=== PATIENT | female | born 1965 | race Native Hawaiian/Other Pacific Islander ===

== ENCOUNTER → 2018-04-01 | Outpatient (CLI) | payer OTHER ==
--- NOTE | 2018-04-01 12:10 | NM ---
EXAMINATION TYPE: NM stress cardiolite complete DATE OF EXAM: 04/01/2018 COMPARISON: NONE HISTORY: abnormal CV function study TECHNIQUE: After the intravenous administration of 10.82 mCi Tc 99m Sestamibi - Rest images obtained 40 minutes post injection. The patient exercised using a ROMIE protocol and 1 minute prior to peak exercise was injected with 25.4 mCi Tc 99m Sestamibi - Stress images obtained 5 minutes post injecti on. FINDINGS: Targeted heart rate was achieved during performance of the study. Review of stress and rest SPECT jose eduardo ges demonstrates no distinct perfusion abnormality. Gated analysis shows normal wall motion with an estimated left ventricular ejection fraction of 50 %. IMPRESSION: No scintigraphic evidence for reversible ischemia
--- NOTE | 2018-04-01 12:14 | EST ---
EXERCISE STRESS AGE: 52 SEX: F HT: 5'2" WT: 196 PROTOCOL: [address] Stress Test STAGE: II DURATION OF EXERCISE: 5:00 HEART RATE REST: 82 BLOOD PRESSURE REST: 146/79 MAXIMUM HEART RATE ACHIEVED: 155 MAXIMUM BLOOD PRESSURE: 169/66 85% MPHR: 141 100% MPHR: 166 METS: 8.9 INDICATIONS: High calcium score. CLINICAL INFORMATION: Patient was exercised for a total period of 5 minutes, peak heart rate of 155 was achieved. Maximum blood pressure 169/66 mmHg was noted. Patient did not complain of any chest pain during the test. Resting EKG shows normal sinus rhythm with normal AK interval and QRS duration and nonspecific ST-T changes. No ST-segment depression suggestive of ischemia was noted. Patient did not complain of any chest pain during the test. FINAL IMPRESSION: 1. This exercise test is not suggestive of ischemia. 2. Patient's exercise tolerance is limited. 3. No dysrhythmias are noted. MMODL / IJN: [id number] /
--- NOTE | 2018-04-01 12:21 | US ---
EXAMINATION TYPE: US abdomen limited DATE OF EXAM: 04/01/2018 COMPARISON: NONE CLINICAL HISTORY: 52-year-old female K78.0 fatty liver. TECHNIQUE: Multiple sonographic images of the right upper quadrant are obtained. FINDINGS: EXAM MEASUREMENTS: Liver Length: 17.6 cm Gallbladder: Surgically absent CBD: 0.7 cm Right Kidney: 10.7 x 5.0 x 4.6 cm Pancreas: Obscured by bowel gas Liver: Obscured by overlying bowel gas, difficult to penetrate either due to fatty infiltration or p atient technical characteristics and soft tissue attenuation. Gallbladder: Surgically absent Evidence for sonographic Bahena's sign: No CBD: Mildly dilated but within normal limits given postcholecystectomy status. Right Kidney: No hydronephrosis. IMPRESSION: Attenuating liver either due to technical factors or underlying hepatic steatosis. Body habitus and b owel gas limits the ultrasound evaluation. Bile duct mildly (7 mm) dilated but within normal limits given postcholecystectomy status.
== END | disposition home or self-care (01) ==
LOC: RADUSMAIN 07:53
PROVIDERS: ATTEND Family Medicine
DX: K76.89 Other specified diseases of liver (principal); K83.8 Other specified diseases of biliary tract; R94.39 Abnormal result of other cardiovascular function study; E11.9 Type 2 diabetes mellitus without complications; Z90.49 Acquired absence of other specified parts of digestive tract
CPT/HCPCS: 93017; 76705; 78452; A9500

== ENCOUNTER 2019-01-01 19:05 | Emergency (ER) | payer OTHER ==
[2019-01-01 19:34] VITALS: RESP 18
[2019-01-01] MEDS ORDERED: SODIUM CHLORIDE 0.9% 1,000 ML IV STA (21:54)
--- NOTE | 2019-01-01 22:01 | ED ---
Abdominal Pain HPI - General Chief Complaint: Abdominal Pain Stated Complaint: Abd Pain Time Seen by Provider: 01/01/19 21:46 Source: patient Mode of arrival: ambulatory Limitations: no limitations - History of Present Illness Initial Comments: Patient is a 53-year-old female complaining of abdominal pain 5 days. Patient states she's also had episodes of nausea and vomiting on and off throughout the 5 days. Patient admits to history of pancreatitis in 2002 and this feels similar. Patient states the pain is in the left upper quadrant with radiation to the left back and currently is a 4/10 pain. Patient admits to history of cholecystectomy. Patient admits to a couple episodes of diarrhea in the past couple days. Denies any recent travel or antibiotic use. Patient denies alcohol abuse, smoking. Patient denies chest pain, shortness of breath, urinary symptoms. - Related Data Previous Rx's Medication Instructions Recorded Cephalexin [Keflex] 500 mg PO Q12HR 10 Days #20 cap 01/01/19 Allergies Allergy/AdvReac Type Severity Reaction Status Date / Time No Known Allergies Allergy Verified 01/01/19 19:34 Review of Systems ROS Statement: Those systems with pertinent positive or pertinent negative responses have been documented in the HPI. ROS Other: All systems not noted in ROS Statement are negative. Past Medical History Past Medical History: Diabetes Mellitus Additional Past Medical History / Comment(s): pancreatitis History of Any Multi-Drug Resistant Organisms: None Reported Past Surgical History: Cholecystectomy, Joint Replacement, Orthopedic Surgery Past Psychological History: No Psychological Hx Reported Smoking Status: Never smoker Past Alcohol Use History: None Reported Past Drug Use History: None Reported General Exam - General Exam Comments Initial Comments: GENERAL: Well-appearing, well-nourished and in no acute distress. HEAD: Atraumatic, normocephalic. EYES: Pupils equal round and reactive to light, extraocular movements intact, sclera anicteric, conjunctiva are normal. ENT: TMs normal, nares patent, oropharynx clear without exudates. Moist mucous membranes. NECK: Normal range of motion, supple without lymphadenopathy or JVD. LUNGS: Breath sounds clear to auscultation bilaterally and equal. No wheezes rales or rhonchi. HEART: Regular rate and rhythm without murmurs, rubs or gallops. ABDOMEN: Tender to palpation in the left upper quadrant. Soft, normoactive bowel sounds. No guarding, no rebound. No masses appreciated. Mild left CVA tenderness. : Deferred EXTREMITIES: Normal range of motion, no pitting or edema. No clubbing or cyanosis. NEUROLOGICAL: Cranial nerves II through XII grossly intact. Normal speech, normal gait. PSYCH: Normal mood, normal affect. SKIN: Warm, Dry, normal turgor, no rashes or lesions noted. Limitations: no limitations Course Vital Signs 01/01/19 01/01/19 01/01/19 19:31 22:57 23:55 Temperature 99 F 98.2 F 97.9 F Pulse Rate 101 H 88 85 Respiratory 18 18 18 Rate Blood Pressure 131/83 139/69 117/63 O2 Sat by Pulse 98 99 98 Oximetry Medical Decision Making - Medical Decision Making Patient is a 53-year-old female complaining of left upper quadrant pain 5 days. Patient reports associated nausea and vomiting. Patient states history of pancreatitis in 2002 and this feels similar. On exam patient has tenderness in the upper left quadrant and mild left-sided CVA tenderness. No other complaints at this time.CBC is unremarkable except slightly elevated hemoglobin at 16.1. No other labs to compare it to. Glucose was 309. Lipase 130. UA revealed positive nitrate, moderate amount of bacteria and leukocyte esterase, as well as 4+ glucose and 1+ ketones. CT abdomen showed no acute process. Patient received fluids and reports improvement. Patient will be treated for a UTI and urged to continue increasing her fluid amount. Case discussed with Dr. Harden. Patient will be discharged home. - Lab Data Result diagrams: 01/01/19 21:53 01/01/19 21:53 Lab Results 01/01/19 01/01/19 01/01/19 Range/Units 21:53 21:53 21:53 WBC 8.0 (3.8-10.6) k/uL RBC 5.35 (3.80-5.40) m/uL Hgb 16.1 H (11.4-16.0) gm/dL Hct 47.2 H (34.0-46.0) % MCV 88.3 (80.0-100.0) fL MCH 30.1 (25.0-35.0) pg MCHC 34.1 (31.0-37.0) g/dL RDW 13.7 (11.5-15.5) % Plt Count 296 (150-450) k/uL Neutrophils % 66 % Lymphocytes % 29 % Monocytes % 3 % Eosinophils % 0 % Basophils % 0 % Neutrophils # 5.3 (1.3-7.7) k/uL Lymphocytes # 2.3 (1.0-4.8) k/uL Monocytes # 0.3 (0-1.0) k/uL Eosinophils # 0.0 (0-0.7) k/uL Basophils # 0.0 (0-0.2) k/uL Sodium 138 (137-145) mmol/L Potassium 4.2 (3.5-5.1) mmol/L Chloride 97 L (98-107) mmol/L Carbon Dioxide 26 (22-30) mmol/L Anion Gap 15 mmol/L BUN 27 H (7-17) mg/dL Creatinine 0.69 (0.52-1.04) mg/dL Est GFR (CKD-EPI)AfAm >90 (>60 ml/min/1.73 sqM) Est GFR (CKD-EPI)NonAf >90 (>60 ml/min/1.73 sqM) Glucose 309 H (74-99) mg/dL Calcium 10.2 (8.4-10.2) mg/dL Total Bilirubin 1.8 H (0.2-1.3) mg/dL AST 28 (14-36) U/L ALT 25 (9-52) U/L Alkaline Phosphatase 122 (38-126) U/L Total Protein 9.1 H (6.3-8.2) g/dL Albumin 5.3 H (3.5-5.0) g/dL Amylase 61 (30-110) U/L Lipase 130 (23-300) U/L Urine Color Yellow Urine Appearance Cloudy H (Clear) Urine pH 5.0 (5.0-8.0) Ur Specific [place] 1.032 (1.001-1.035) Urine Protein Trace H (Negative) Urine Glucose (UA) 4+ H (Negative) Urine Ketones 1+ H (Negative) Urine Blood Negative (Negative) Urine Nitrite Positive H (Negative) Urine Bilirubin Negative (Negative) Urine Urobilinogen <2.0 (<2.0) mg/dL Ur Leukocyte Esterase Moderate H (Negative) Urine WBC 40 H (0-5) /hpf Ur Squamous Epith Cells 3 (0-4) /hpf Urine Bacteria Moderate H (None) /hpf Hyaline Casts 6 H (0-2) /lpf Urine Mucus Many H (None) /hpf Disposition Clinical Impression: UTI (urinary tract infection) Disposition: HOME SELF-CARE Condition: Stable Instructions (If sedation given, give patient instructions): Urinary Tract Infection in Women (ED) Additional Instructions: Please return to the Emergency Department if symptoms worsen or any other concerns. Prescriptions: Cephalexin [Keflex] 500 mg PO Q12HR 10 Days #20 cap Is patient prescribed a controlled substance at d/c from ED?: No Referrals: Johanna Lugo MD [Primary Care Provider] - 1-2 days
[2019-01-01 22:14] LABS: Basophils % (A) 0 %; Eosinophils % (A) 0 %; HCT 47.2 % (34.0-46.0); HGB 16.1 gm/dL (11.4-16.0); Lymphocytes # (A) 2.3 k/uL (1.0-4.8); Lymphocytes % (A) 29 %; MCH 30.1 pg (25.0-35.0); MCHC 34.1 g/dL (31.0-37.0); MCV 88.3 fL (80.0-100.0); Mean Platelet Volume 7.4; Monocytes # (A) 0.3 k/uL (0-1.0); Monocytes % (A) 3 %; Neutrophils # (A) 5.3 k/uL (1.3-7.7); Neutrophils % (A) 66 %; Platelet Count 296 k/uL (150-450); RBC 5.35 m/uL (3.80-5.40); RDW 13.7 % (11.5-15.5)
[2019-01-01 22:18] LABS: ALT 25 U/L (9-52); AST 28 U/L (14-36); Albumin 5.3 g/dL (3.5-5.0); Alkaline Phosphatase 122 U/L (38-126); Amylase 61 U/L (30-110); Anion Gap 15 mmol/L; Blood Urea Nitrogen 27 mg/dL (7-17); Calcium 10.2 mg/dL (8.4-10.2); Carbon Dioxide 26 mmol/L (22-30); Chloride 97 mmol/L (98-107); Glucose 309 mg/dL (74-99); Lipase 130 U/L (23-300); Potassium 4.2 mmol/L (3.5-5.1); Sodium 138 mmol/L (137-145); Total Bilirubin 1.8 mg/dL (0.2-1.3); Total Protein 9.1 g/dL (6.3-8.2)
[2019-01-01 22:24] LABS: Appearance,Urine Cloudy (Clear); Bacteria,Urine Moderate /hpf; Bilirubin,Urine Negative (Negative); Blood,Urine Negative (Negative); Color,Urine Yellow; Glucose,Urine (UA) 4+ (Negative); Hyaline Casts,Urine 6 /lpf (0-2); Ketones,Urine 1+ (Negative); Leukocyte Esterase,Urine Moderate (Negative); Mucus,Urine Many /hpf; Nitrite,Urine Positive (Negative); Protein,Urine Trace (Negative); Specific Gravity,Urine 1.032 (1.001-1.035); Squamous Epithelial Cell,Urine 3 /hpf (0-4); Urobilinogen,Urine <2.0 mg/dL (<2.0)
--- NOTE | 2019-01-01 23:20 | CT ---
EXAM: CT Abdomen and Pelvis Without Intravenous Contrast CLINICAL HISTORY: ITS.REASON CT Reason: Pain TECHNIQUE: Axial computed tomography images of the abdomen and pelvis without intravenous contrast. CTDI is 13.6 mGy and DLP is 747.5 mGy-cm. This CT exam was performed using one or more of the following dose reduction techniques: automated exposure control, adjustment of the mA and/or kV according to patient size, and/or use of iterative reconstruction technique. COMPARISON: No relevant prior studies available. FINDINGS: The lung bases are clear. Status post cholecystectomy. No biliary ductal dilation. The liver, spleen, kidneys, and adrenal glands are within normal limits for noncontrast technique. There is no bowel obstruction or perforation. Colonic wall thickening is felt to reflect lack of distention. No adjacent stranding to indicate colitis. Unremarkable appendix. Minimal aortic atherosclerosis. No AAA. There is also iliofemoral atherosclerosis. Fatty umbilical hernia. No acute fracture. Sclerotic lesions to the bony pelvis, likely benign bone islands/osteopoikilosis. No acute fracture. IMPRESSION: Fatty umbilical hernia. Cholecystectomy. Other incidental findings as above.
[2019-01-02] VITALS: BP 117/63; PULSE 85; TEMP 97.9
== END 2019-01-02 00:12 | disposition home or self-care (01) ==
LOC: EC 19:05
DX: N39.0 Urinary tract infection, site not specified (principal); R10.12 Left upper quadrant pain; R11.2 Nausea with vomiting, unspecified; R19.7 Diarrhea, unspecified; Z87.19 Personal history of other diseases of the digestive system; Z90.49 Acquired absence of other specified parts of digestive tract
CPT/HCPCS: 36415; 74176; 80053; 81001; 82150; 83690; 85025; 87077; 87086; 87186; 96360; 96361; 99284

== ENCOUNTER → 2023-05-22 | Outpatient (CLI) | payer OTHER ==
--- NOTE | 2023-05-22 09:15 | FL ---
EXAMINATION TYPE: FL barium swallow DATE OF EXAM: 05/22/2023 8:47 AM COMPARISON: . None CLINICAL INDICATION:Female, 57 years old with history of R13.10 DYSPHAGIA; PHH, TECHNIQUE: The procedure was explained and patient history elicited. All patient questions were ans wered prior to start of procedure. Multiple spot fluoroscopic images of the esophagus were obtained a fter the oral ingestion of effervescent crystals and liquid barium as the contrast agent. Fluoroscopic time: 37 seconds Fluoroscopic images: 0 Radiographs taken: 56 DAP: 677.61 mGym2 FINDINGS: The esophagus demonstrates normal primary and secondary peristalsis. The esophageal mucosa is smooth without evidence of focal stricture, ulceration, or abnormal outpouching. No gastroesophageal reflu x disease was identified. Tertiary contractions are present. On imaging of the pharynx there is some retention of contrast at the base of the tongue within the va llecula. IMPRESSION: 1. Mild esophageal dysmotility 2. Mild retention within the vallecula, a speech pathology evaluation may be of benefit.
== END | disposition home or self-care (01) ==
LOC: RADUSWWP 08:03
PROVIDERS: ATTEND Family Medicine
DX: R13.10 Dysphagia, unspecified (principal); K22.4 Dyskinesia of esophagus
CPT/HCPCS: 74220